=== PATIENT | male | born 1940 | race Caucasian/White ===

== ENCOUNTER → 2019-02-25 | Outpatient (CLI) | payer MEDICARE, OTHER ==
[~2019-02-25] MED LIST: AMOXICILLIN 50500 MG PO; ASPIR-LOW81 MG PO; ASPIRIN 32325 MG/TAB PO; ASPIRIN E.C. 8181 MG PO; BACTRIM DS 8001 TAB PO; BIAXIN XL500 MG PO; CENTRUM SILVER1 CTB PO; CENTRUM SILVER1 TA1 PO; FISH OIL CONC1000 MG PO; FLOMAX 0.40.4 MG/CAP PO; HCTZ 25MG25 MG PO; IMDUR 30MG30 MG/TAB PO; LIPITOR 10MG10 MG PO; LOPRESSOR 225 MG/TAB PO; MICARDIS 40MG40 MG PO; MICARDIS80 MG PO; NIACIN50 MG PO; NIASPAN 500MG500 MG PO; NITROQUICK0.4 MG SL; NORCO 325 MG-7.1 TAB PO; OSTEO-BI-FLEX 21 TAB PO; PHARMASSURE SA160 MG PO; PRILOSEC 20MG20 MG PO; SEPTRA 400 MG-1 TAB PO; SEPTRA DS 8001 TAB PO; SUPER EPA 1201200 MG PO; SYNTHROID0.088 MG/T PO; VITAMIN C BUFF500 MG PO; VITAMIN C500 MG PO; ZOCOR 20MG20 MG PO
== END ==
LOC: COL.RAD 10:38
DX: Z95.0 Presence of cardiac pacemaker (principal)

== ENCOUNTER 2021-01-14 12:12 | Emergency (ER) | payer MEDICARE, OTHER ==
[~2021-01-14] VITALS: Ht 188 cm; Wt 84.5 kg
[2021-01-14 12:16] VITALS: TEMP 97.2
[2021-01-14 13:10] LABS: BASO % 0.7 % (0.0-2.0); EOS # 0.2 (0.0-0.7); EOS % 4.3 % (0-4.0); GRAN # 2.8 (1.4-6.5); GRAN % 60.4 % (42.2-75.2); HEMATOCRIT 39.5 % (42.0-52.0); HEMOGLOBIN 13.4 g/dl (13.5-18.0); LYMPH # 0.8 (1.2-3.4); LYMPH % 18.3 % (20.0-51.0); MEAN CELL VOLUME 100 fl (80.0-100.0); MEAN CORPUSCULAR HEMOGLOBIN 34 pg (27.0-31.0); MEAN CORPUSCULAR HGB CONC 34 g/dl (33.0-37.0); MEAN PLATELET VOLUME 10.8 fl (7.4-10.4); MONO # 0.7 (0.1-0.6); MONO % 15.9 % (1.7-9.3); PLATELET COUNT 123 K/mm3 (130-400); RED BLOOD COUNT 3.97 M/mm3 (4.20-5.60); REDCELL DISTRIBUTION WIDTH-CV 12.5 % (11.5-14.5)
[2021-01-14 13:19] LABS: COLLECTION METHOD CLEAN CATCH
[2021-01-14 13:28] LABS: MUCOUS Present /lpf; PH 6 (5-8); SQUAMOUS EPITHELIAL None Seen /hpf; URINE APPEARANCE Hazy; URINE BACTERIA None Seen /hpf; URINE BILIRUBIN Negative (NEGATIVE); URINE BLOOD Negative (NEGATIVE); URINE COLOR Amber; URINE GLUCOSE Negative (NEGATIVE); URINE KETONE Negative (NEGATIVE); URINE LEUKOCYTE ESTERASE Negative (NEGATIVE); URINE NITRATE Negative (NEGATIVE); URINE PROTEIN(semi-quant) 1+ (NEGATIVE); URINE RBC 0-2 /hpf; URINE UROBILINOGEN Negative (NEGATIVE)
[2021-01-14 13:52] LABS: ALANINE AMINOTRANSFERASE 28 U/L (4-49); ALBUMIN 4.4 gm/dL (3.5-5.0); ALKALINE PHOSPHATASE 53 U/L (50-136); ANION GAP 9 mmol/L (7-16); AST,SGOT 69 U/L (15-37); BILIRUBIN,TOTAL 1.2 mg/dL (0.0-1.0); BLOOD UREA NITROGEN 21 mg/dL (9-20); CALCIUM 9.2 mg/dL (8.4-10.2); CARBON DIOXIDE 26 mmol/L (22-30); CHLORIDE 103 mmol/L (98-107); CREATININE, serum 1.22 (0.66-1.25); GLUCOSE 103 mg/dL (74-106); POTASSIUM 4.6 mmol/L (3.4-5.0); SODIUM 137 mmol/L (137-145); TOTAL PROTEIN 7.4 gm/dL (6.4-8.2)
[2021-01-14 14:04] LABS: TROPONIN-I < 0.012 ng/mL (0.000-0.035)
[2021-01-14 14:45] VITALS: BP 127/78; PULSE 63
== END 2021-01-14 14:45 | disposition home or self-care (01) ==
LOC: COL.ER 12:12
PROVIDERS: Emergency Medicine
DX: I95.9 Hypotension, unspecified (principal); D61.818 Other pancytopenia; I10 Essential (primary) hypertension; I25.10 Atherosclerotic heart disease of native coronary artery without angina pectoris; E03.9 Hypothyroidism, unspecified; N40.0 Benign prostatic hyperplasia without lower urinary tract symptoms; E78.5 Hyperlipidemia, unspecified; Z79.82 Long term (current) use of aspirin; Z79.890 Hormone replacement therapy

== ENCOUNTER → 2021-07-20 | Outpatient (CLI) | payer MEDICARE, OTHER ==
[~2021-07-20] MED LIST changes: +ASPIRIN 81M81 MG/TA2 PO; +CATAPRES 0.1MG0.1 MG PO; +MICARDIS40 MG PO; +NITROSTAT0.4 MG/TAB SL; +OCUVITE1 TA1 PO; +TIROSINT50 MC1 PO
== END ==
LOC: ZCOL.LAB 11:39
DX: R06.00 Dyspnea, unspecified (principal)

== ENCOUNTER 2021-08-01 07:23 | Day surgery (SDC) | payer MEDICARE, OTHER ==
[~2021-08-01] VITALS: Ht 188 cm; Wt 106.5 kg
[~2021-08-01 07:23] MED LIST changes: -ASPIRIN 81M81 MG/TA2 PO; -CATAPRES 0.1MG0.1 MG PO; -MICARDIS40 MG PO; -NITROSTAT0.4 MG/TAB SL; -OCUVITE1 TA1 PO; -TIROSINT50 MC1 PO
[2021-08-01 08:39] VITALS: BP 124/82; PULSE 69; TEMP 97.1
[2021-08-01] MEDS ORDERED: NIASPAN 500MG500 MG PO (08:47)
[2021-08-01] MEDS ORDERED: FLOMAX 0.40.4 MG/CAP PO (08:47)
[2021-08-01] MEDS ORDERED: CATAPRES 0.1MG0.1 MG PO (08:48)
[2021-08-01] MEDS ORDERED: LIPITOR 10MG10 MG PO (08:49)
[2021-08-01] MEDS ORDERED: PRILOSEC 20MG20 MG PO (08:49)
[2021-08-01] MEDS ORDERED: MICARDIS40 MG PO (08:49)
[2021-08-01] MEDS ORDERED: ASPIRIN 81M81 MG/TA2 PO (08:50)
[2021-08-01] MEDS ORDERED: TIROSINT50 MC1 PO (08:50)
[2021-08-01] MEDS ORDERED: NITROSTAT0.4 MG/TAB SL (08:51)
[2021-08-01] MEDS ORDERED: OCUVITE1 TA1 PO (08:51)
[2021-08-01 10:00] VITALS: BP 114/65; PULSE 68; TEMP 97.3
[2021-08-01 10:15] VITALS: BP 104/71; PULSE 61
[2021-08-01 10:30] VITALS: BP 120/72; PULSE 62
[2021-08-01 10:45] VITALS: BP 124/70; PULSE 64
--- NOTE | 2021-08-01 11:12 | NUR ---
1000 Pt returns from endo procedure via cart and RN assist to [facility]. Pt ambulates from cart to recliner with RN assist. Monitors on and alarms set. Call light within reach. Report received from GILES Martinez. Pt alert and oriented. Pt requests muffin and water. Pt denies any pain or nausea. 1015 Pt taking food and drink well. No complications noted. 1110 Discharge instructions given to pt and . All questions answered to their satisfaction. Handed to pt are a thank you card and discharge information. 1112 Pt transferred out of the hospital via wheelchair and Darlene, staff assist, to private vehicle driven by .
== END 2021-08-01 11:12 | disposition home or self-care (01) ==
LOC: SDCO 07:23
DX: K29.30 Chronic superficial gastritis without bleeding (principal); K22.2 Esophageal obstruction; K44.9 Diaphragmatic hernia without obstruction or gangrene; K21.9 Gastro-esophageal reflux disease without esophagitis; I25.10 Atherosclerotic heart disease of native coronary artery without angina pectoris; I10 Essential (primary) hypertension; E03.9 Hypothyroidism, unspecified; E78.5 Hyperlipidemia, unspecified; Z20.822 Contact with and (suspected) exposure to COVID-19; M19.90 Unspecified osteoarthritis, unspecified site; Z95.1 Presence of aortocoronary bypass graft; Z86.79 Personal history of other diseases of the circulatory system; Z79.899 Other long term (current) drug therapy; Z79.82 Long term (current) use of aspirin; Z79.890 Hormone replacement therapy; Z95.0 Presence of cardiac pacemaker; Z98.890 Other specified postprocedural states
CPT/HCPCS: J2704; J7030